=== PATIENT | female | born 1975 | race Caucasian/White ===

== ENCOUNTER 2019-02-06 13:12 | Emergency (ER) | payer BC ==
[2019-02-06 13:32] VITALS: BP 113/80
[2019-02-06] MEDS ORDERED: Albuterol 2.5 MG/3 ML NEB.SOL* (0.083%) INH ONE (13:41)
[2019-02-06] MEDS ORDERED: Ipratropium 0.5MG/2.5ML NEB* 0.5 MG/2.5 ML NEB.SOLN INH ONE (13:41)
--- NOTE | 2019-02-06 13:54 | UC ---
Respiratory Complaint HPI - HPI Summary HPI Summary: 43 yo female with about one week hx of cough/wheezing and sore throat chest feels tight no f/c no SOB - History of Current Complaint Chief Complaint: UCRespiratory Stated Complaint: CHEST CONGESTION,COUGH Time Seen by Provider: 02/06/19 13:34 Hx Obtained From: Patient Onset/Duration: Sudden Onset, Gradual Onset Timing: Constant Severity Initially: Mild Severity Currently: Moderate Pain Intensity: 3 Pain Scale Used: 0-10 Numeric Character: Cough: Productive Aggravating Factors: Nothing Alleviating Factors: Nothing Associated Signs And Symptoms: Positive: Wheezing, Nasal Congestion - Allergies/Home Medications Allergies/Adverse Reactions: Allergies Allergy/AdvReac Type Severity Reaction Status Date / Time No Known Allergies Allergy Verified 02/06/19 13:32 Home Medications: Home Medications Copd Inhaler 1 unit INH ONCE PRN 02/06/19 [History Confirmed 02/06/19] diphenhydrAMINE HCl [Allergy Medication] 1 tab PO ONCE PRN 02/06/19 [History Confirmed 02/06/19] guaiFENesin [Mucinex] 1,200 mg PO ONCE PRN 02/06/19 [History Confirmed 02/06/19] PMH/Surg Hx/FS Hx/Imm Hx Previously Healthy: Yes Respiratory History: Bronchitis - Surgical History Surgical History: Yes Surgery Procedure, Year, and Place: PARTIAL HYSTERECTOMY. CARPAL TUNNEL--B/L. OBLATION. D&C - Family History Known Family History: Positive: Hypertension - Social History Alcohol Use: Rare Substance Use Type: None Smoking Status (MU): Heavy Every Day Tobacco Smoker Type: Cigarettes Amount Used/How Often: 1 PPD Length of Time of Smoking/Using Tobacco: 21 Years Have You Smoked in the Last Year: Yes Household Exposure Type: Cigars Cessation Counseling: Patient Advised to Stop - Immunization History Most Recent Tetanus Shot: Unknown Review of Systems All Other Systems Reviewed And Are Negative: Yes Constitutional: Positive: Negative Skin: Positive: Negative Eyes: Positive: Negative ENT: Positive: Negative Respiratory: Positive: Cough, Other - wheezing Cardiovascular: Positive: Negative Gastrointestinal: Positive: Negative Genitourinary: Positive: Negative Motor: Positive: Negative Neurovascular: Positive: Negative Musculoskeletal: Positive: Negative Neurological: Positive: Negative Psychological: Positive: Negative Physical Exam Triage Information Reviewed: Yes Appearance: Well-Appearing, No Pain Distress, Well-Nourished Vital Signs: Initial Vital Signs Temp 97.2 F 02/06/19 13:28 Pulse 87 02/06/19 13:28 Resp 18 02/06/19 13:28 BP 113/80 02/06/19 13:28 Pulse Ox 95 02/06/19 13:28 Vital Signs Reviewed: Yes Eyes: Positive: Conjunctiva Clear ENT: Positive: Hearing grossly normal. Negative: Nasal congestion, Nasal drainage, Dental tenderness, Sinus tenderness, Uvula midline Neck: Positive: Supple, Nontender, No Lymphadenopathy Respiratory: Positive: No respiratory distress, No accessory muscle use, Wheezing Cardiovascular: Positive: RRR, No Murmur Musculoskeletal: Positive: ROM Intact, No Edema Neurological: Positive: Alert Psychological Exam: Normal Skin Exam: Normal Re-Evaluation - Re-Evaluation First Eval Re-Evaluation Time: 14:21 Change: Improved - wheezes decreased/better air movement Respiratory Course/Dx - Differential Dx/Diagnosis Provider Diagnosis: Acute bronchitis with bronchospasm, Smoker Discharge - Sign-Out/Discharge Documenting (check all that apply): Patient Departure All imaging exams completed and their final reports reviewed: No Studies - Discharge Plan Condition: Stable Disposition: HOME Prescriptions: Albuterol HFA INHALER* [Ventolin HFA Inhaler*] 2 puff INH QID #1 mdi Amoxicillin PO (*) [Amoxicillin 875 MG (*)] 875 mg PO BID #14 tab predniSONE [Deltasone 20 MG TAB] 40 mg PO DAILY #8 tab Patient Education Materials: Acute Bronchitis (ED) Referrals: Sidney Santizo MD [Primary Care Provider] - 4 Days (if not better) Additional Instructions: you need to stop smoking recheck for worsening symptoms - Billing Disposition and Condition Condition: STABLE Disposition: Home
[2019-02-06] MEDS ORDERED: predniSONE TAB* 20 MG PO ONE (14:17)
== END 2019-02-06 14:31 | disposition home or self-care (01) ==
LOC: UCCORT 13:12
DX: J20.9 Acute bronchitis, unspecified (principal); F17.210 Nicotine dependence, cigarettes, uncomplicated
CPT/HCPCS: 99212; G0463; J7512

== ENCOUNTER 2019-09-06 17:01 | Emergency (ER) | payer BC ==
--- NOTE | 2019-09-06 17:07 | UC ---
Respiratory Complaint HPI - HPI Summary HPI Summary: 44 yo female presents with URI symptoms. She tells me that for the last 5-6 days she has had sinus congestion, b/l earache, sore throat, and dry cough. She smokes daily. Has been taking OTC cold medication with little relief. Last night she noticed her right ear felt more muffled and felt like it had fluid within. Denies fever, chills, rash, SOB, chest pain, abdominal pain, n/v - History of Current Complaint Stated Complaint: ST, COUGH Time Seen by Provider: 09/06/19 17:07 Hx Obtained From: Patient Onset/Duration: Gradual Onset Severity Initially: Moderate Severity Currently: Moderate Pain Intensity: 6 Pain Scale Used: 0-10 Numeric - Allergies/Home Medications Allergies/Adverse Reactions: Allergies Allergy/AdvReac Type Severity Reaction Status Date / Time No Known Allergies Allergy Verified 09/06/19 17:15 Home Medications: Home Medications DULoxetine DR CAP* [Cymbalta CAP*] 40 mg PO DAILY 09/06/19 [History Confirmed ] Omeprazole 20 mg PO DAILY 09/06/19 [History Confirmed 09/06/19] PMH/Surg Hx/FS Hx/Imm Hx Respiratory History: Asthma Psychological History: Anxiety, Depression - Surgical History Surgical History: Yes Surgery Procedure, Year, and Place: PARTIAL HYSTERECTOMY. CARPAL TUNNEL--B/L. OBLATION. D&C - Family History Known Family History: Positive: Hypertension - Social History Lives: With Family Alcohol Use: Rare Substance Use Type: None Smoking Status (MU): Heavy Every Day Tobacco Smoker Type: Cigarettes Amount Used/How Often: 1 PPD Length of Time of Smoking/Using Tobacco: 21 Years Have You Smoked in the Last Year: Yes Household Exposure Type: Cigars - Immunization History Most Recent Tetanus Shot: Unknown Review of Systems All Other Systems Reviewed And Are Negative: No Constitutional: Positive: Negative Skin: Positive: Negative Eyes: Positive: Negative ENT: Positive: Sore Throat, Ear Ache, Sinus Congestion Respiratory: Positive: Cough Cardiovascular: Positive: Negative Gastrointestinal: Positive: Negative Physical Exam - Summary Physical Exam Summary: GENERAL: NAD. WDWN. No pain distress. SKIN: No rashes, sores, lesions, or open wounds. HEENT: Head: AT/NC Eyes: EOM intact. Conjunctiva clear without inflammation or discharge. Ears: Hearing grossly normal. RIGHT TM with mild erythema and bulging. No canal edema or drainage. Nose: Nasal mucosa pink and moist. NTTP maxillary and frontal sinus. Throat: Posterior oropharynx with mild erythema. without exudates or tonsillar enlargement. Uvula midline. Positive post nasal drip. NECK: Supple. Nontender. No lymphadenopathy. CHEST: CTAB. No r/r/w. No accessory muscle use. Breathing comfortably and in no distress. CV: RRR. Without m/r/g. Pulses intact. NEURO: Alert. PSYCH: Age appropriate behavior. Triage Information Reviewed: Yes Vital Signs: Vital Signs: Temp Pulse Resp BP Pulse Ox 99.1 F 96 16 125/85 96 09/06/19 17:12 09/06/19 17:12 09/06/19 17:12 09/06/19 17:12 09/06/19 17:12 Vital Signs Reviewed: Yes Respiratory Course/Dx - Course Course Of Treatment: OTitis media - Differential Dx/Diagnosis Provider Diagnosis: Otitis media, URI (upper respiratory infection) Discharge ED - Sign-Out/Discharge Documenting (check all that apply): Patient Departure All imaging exams completed and their final reports reviewed: No Studies - Discharge Plan Condition: Stable Disposition: HOME Prescriptions: Amoxicillin PO (*) [Amoxicillin 875 MG (*)] 875 mg PO BID #14 tab Patient Education Materials: Ear Infection (ED), Upper Respiratory Infection ( ED) Referrals: Sidney Santizo MD [Primary Care Provider] - Additional Instructions: If you develop a fever, shortness of breath, chest pain, new or worsening symptoms - please call your PCP or go to the ED immediately. - Billing Disposition and Condition Condition: STABLE Disposition: Home
--- OUTSIDE RECORDS SUMMARY | 2019-09-06 17:11 | XMS REPORT | Continuity of Care Document ---
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 Sprain of hip Dena Ragland PA Onset: 12/07/2018 Social History Type Date Description Comments Sex Unknown Tobacco Use Start: Unknown Heavy tobacco smoker (more than 10 cigarettes/day) Tobacco Use Start: Unknown Patient is a current cigar smoker, smokes every day ETOH Use Currently consumes alcohol socially Recreational Drug Use Denies Drug Use Tobacco Use Start: Unknown Heavy tobacco smoker (more than 10 cigarettes/day) Smoking Status Reviewed: 08/03/19 Heavy tobacco smoker (more than 10 cigarettes/day) Enjoy Exercising Enjoys exercising Exercise Type/Frequency Walks daily Tattoo/Piercing Tattoo Tattoo/Piercing Pierced ears Smoke Alarms Yes Smoke Alarms Carbon Monoxide Detector: Yes Allergies, Adverse Reactions, Alerts Description No Known Drug Allergies Medications Active Medications SIG Qnty Indications Ordering Date Provider Keflex take one tablet 15caps D48.61 Blaine Thurman 10/02/2019 500mg Capsules by mouth 3 times KIP MCNAIR daily for 5 days. take it in the middle of your meal Duloxetine HCL take 2 capsules Unknown 20mg Caps DR by mouth once Part daily Cyclobenzaprine HCL take 1 tablet 3x Unknown 10mg day if needed Tablets Meclizine HCL 1 tabs every 6-8 30tabs Unknown 12.5mg hour by mouth as Tablets needed dizziness Ibuprofen take 2 tablets by Unknown 500mg Tablets mouth as needed for back pain, up to 4 times per day Omeprazole take 1 capsule by Unknown 20mg Capsules DR mouth once daily Chantix Starting Month Use as Directed Unknown Esequiel Inside 0.5mg X 11 & 1 mg X 42 Package,May Cut Tablets Tablets In Half To Minimize Nausea Medications Administered in Office Medication SIG Qnty Indications Ordering Provider Date Depomedrol 40mg/1cc Elizabeth Oscar, [facility] 08/31/2014 (methylprednisolone acetate) Injection Depo-Medrol 20mg Elizabeth Oscar, [facility] 11/15/2013 Injection Immunizations Description No Information Available Vital Signs Date Vital Result Comment 08/03/2019 1:24pm BP Systolic 102 mmHg BP Diastolic 72 mmHg Heart Rate 85 /min Height 63 inches 5'3" Weight 203.00 lb BMI (Body Mass Index) 36.0 kg/m2 BSA (Body Surface Area) 1.95 m2 [place] body weight in kilograms 52 kg O2 % BldC Oximetry 93 % 12/07/2018 2:12pm BP Systolic Sitting Right Arm 120 mmHg BP Diastolic Sitting Right Arm 82 mmHg Body Temperature 97.1 F Heart Rate 96 /min Height 63 inches 5'3" Weight 200.25 lb BMI (Body Mass Index) 35.5 kg/m2 BSA (Body Surface Area) 1.93 m2 [place] body weight in kilograms 52 kg O2 % BldC Oximetry 98 % Pain Level 8 Results Description No Information Available Procedures Date Code Description Status 07/28/2019 [id number] Mammogram Completed 02/27/2017 [id number] Mammogram Completed 06/05/2014 [id number] Mammogram Completed 09/20/2008 [id number] Mammogram Completed Medical Devices Description No Information Available Encounters Description No Information Available Assessments Date Code Description Provider 08/03/2019 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 take it in the middle of your mealComments:right breast tenderness with area of nodularity of about 1 cm in the areolar region. possibly infectious. will give her a course of 10 days of oral antibiotics and then re-evaluate in 2 weeks clinically if improvement is seen then maybe repeat the ultrasound of the right breast 6 weeks after prior study. Functional Status Functional Condition Comment Date Status Contacts Active Mental Status Description No Information Available Referrals Description No Information Available
--- OUTSIDE RECORDS SUMMARY | 2019-09-06 17:11 | XMS REPORT | Continuity of Care Document ---
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 Onset: 01/01/2015 Cellulitis and abscess of upper limb Blaine Thurman MD,FACS Onset: 2016 Radial styloid tenosynovitis Dena Ragland PA Onset: 09/20/2018 Chronic crepitant synovitis of wrist Dena Ragland PA Onset: 09/20/2018 Pseudomonas aeruginosa infection of nail Blaine Thurman MD,FACS Onset: 08/17 Neoplasm of uncertain behavior of breast Blaine [...] Medications SIG Qnty Indications Ordering Date Provider Bactrim DS 1 tablet by mouth 14tabs L03.818 Blaine Thurman, 08/17/2019 800-160mg twice daily with KIP MCNAIR Tablets meals for 7 days. take in the middle of your meal. stop taking keflex or other antibiotics. Keflex take one tablet 15caps D48.61 Blaine Thurman, 08/03/2019 500mg Capsules by mouth 3 times KIP [...] Unknown 20mg Capsules DR mouth once daily Medications Administered in Office Medication SIG Qnty Indications Ordering Provider Date Depomedrol 40mg/1cc Elizabeth Oscar, [facility] 08/31/2014 (methylprednisolone acetate) Injection Depo-Medrol 20mg Elizabeth Oscar, [facility] 11/15/2013 Injection Immunizations Description No Information Available Vital Signs Date Vital Result Comment 08/17/2019 11:20am BP Systolic Sitting Left Arm 118 mmHg BP Diastolic Sitting Left Arm 84 mmHg Body Temperature 98.2 F Heart Rate 90 /min Respiratory Rate 18 /min Height 63 inches 5'3" Weight 202.00 lb BMI (Body Mass Index) 35.8 kg/m2 BSA (Body Surface Area) 1.94 m2 [place] body weight in kilograms 52 kg O2 % BldC Oximetry 95 % Ra 08/03/2019 1:24pm BP Systolic 102 mmHg BP Diastolic 72 mmHg Heart Rate 85 /min Height 63 inches 5'3" Weight 203.00 lb BMI (Body Mass Index) 36.0 kg/m2 BSA (Body Surface Area) 1.95 m2 [place] body weight in kilograms 52 kg O2 % BldC Oximetry 93 % Results Description No Information Available Procedures Date Code Description Status 07/28/2019 [id number] Mammogram Completed 02/27/2017 [id number] Mammogram Completed 06/05/2014 [id number] Mammogram Completed 09/20/2008 [id number] Mammogram Completed Medical Devices Description No Information Available Encounters Type Date Location Provider Dx Diagnosis Office Visit 08/03/2019 Surgical Office Blaine Thurman, D48.61 Neoplasm of 1:00p KIP MCNAIR uncertain behavior of right breast Assessments Date Code Description Provider 08/17/2019 L03.818 Cellulitis of other sites Blaine Thurman MD, FACS 08/17/2019 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 take in the middle of your meal. stop taking keflex or other antibiotics.Comments:has h/o bilateral axillae cellulitis. has some recurrent folliculitis in the axillae i recommended that she stops shaving her axillary hair and keep the area clean and dry until the infection is better. will send her antibiotics prescription.RTC in 2-3 weeks.D48.61 Neoplasm of uncertain behavior of right breastComments:right breast tenderness with area of nodularity of about 1 cm in the areolar region. slightly decreased with antibiotics but not completely resolved. will repeat right breast ultrasound, if pathology still there, then will schedule for ultrasound guided biopsy.her annual screening mammo and bilateral breast ultrasound is around the month of july. Functional Status Functional Condition Comment Date Status Contacts Active Mental Status Description No Information Available Referrals Description No Information Available
[2019-09-06 17:15] VITALS: BP 125/85
== END 2019-09-06 17:32 | disposition home or self-care (01) ==
LOC: UCCORT 17:01
DX: H66.93 Otitis media, unspecified, bilateral (principal); J06.9 Acute upper respiratory infection, unspecified; F41.9 Anxiety disorder, unspecified; F32.9 Major depressive disorder, single episode, unspecified; F17.210 Nicotine dependence, cigarettes, uncomplicated
CPT/HCPCS: 87651; 99212; G0463